=== PATIENT | male | born 1975 | race African-American/Black ===

== ENCOUNTER 2024-06-05 11:16 | Emergency (ER) | payer OTHER ==
[~2024-06-05] VITALS: Ht 170.2 cm; Wt 113.4 kg
[2024-06-05] MEDS ORDERED: PRED20TA PO (12:36)
[2024-06-05] MEDS ORDERED: AZIT250T13 PO (12:36)
[2024-06-05] MEDS ORDERED: ALBU18HF2 INH (12:36)
[2024-06-05 12:46] VITALS: BP 172/101; TEMP 98.4; O2SAT 99
== END 2024-06-05 12:40 | disposition home or self-care (01) ==
LOC: ER 11:16
DX: J22 Unspecified acute lower respiratory infection (principal); I10 Essential (primary) hypertension; Z79.52 Long term (current) use of systemic steroids
CPT/HCPCS: 71045-TC

== ENCOUNTER 2024-06-11 13:54 | Emergency (ER) | payer OTHER ==
[~2024-06-11] VITALS: Ht 170.2 cm; Wt 113.4 kg
[~2024-06-11 13:54] MED LIST: ALBU18HF2 INH; AZIT250T13 PO; PRED20TA PO
[2024-06-11 15:05] VITALS: BP 165/99; TEMP 98.7; O2SAT 98
== END 2024-06-11 15:05 | disposition home or self-care (01) ==
LOC: ER 13:56
DX: J40 Bronchitis, not specified as acute or chronic (principal); I10 Essential (primary) hypertension; R05.9 Cough, unspecified; Z79.52 Long term (current) use of systemic steroids; Z79.899 Other long term (current) drug therapy; Z98.890 Other specified postprocedural states